=== PATIENT | male | born 1980 | race Caucasian/White ===

== ENCOUNTER → 2018-06-24 | Outpatient (CLI) | payer OTHER ==
[~2018-06-24] MED LIST: IOHEXOL 350 MG/ML 150 ML (OMNIPAQUE 350) VIAL IV ONE; NS 250 ML (IVPB) BAG IV ONE; RECEIVED CONTRAST (Hold Metformin) IV SCH
[2018-06-24 15:41] LABS: CREATININE SERUM 1.43 MG/DL (0.60-1.30)
== END ==
LOC: RAD 14:54
PROVIDERS: ATTEND Nurse Practitioner Family
DX: J45.909 Unspecified asthma, uncomplicated (principal); E66.9 Obesity, unspecified; G47.10 Hypersomnia, unspecified; G47.50 Parasomnia, unspecified
CPT/HCPCS: 36415; 82565; 84520

== ENCOUNTER 2018-07-05 08:30 | Outpatient (CLI) | payer OTHER | END 2018-07-05 08:45 | disposition home or self-care (01) | LOC: SLEEP 08:30 | PROVIDERS: ATTEND Nurse Practitioner Family | DX: J45.909 Unspecified asthma, uncomplicated (principal); E66.9 Obesity, unspecified; G47.10 Hypersomnia, unspecified; G47.50 Parasomnia, unspecified; R06.00 Dyspnea, unspecified ==

== ENCOUNTER → 2018-07-10 | Outpatient (CLI) | payer OTHER ==
[2018-06-24 15:32] LABS: ABG BASE EXCESS 1.3 MMOL/L (-2.5-2.5); ABG OXYGEN SATURATION 98 % (94-100); ABG PCO2 33 MMHG (35-45); ABG PH 7.48 (7.37-7.43); ABG PO2 95 MMHG (79-93); ABG TCO2 25.4 MMOL/L (21.0-31.0)
[2018-06-24 15:33] LABS: ALLENS TEST POSITIVE; PATIENT TEMP 99.1; VENTILATOR NO
[~2018-07-10] MED LIST changes: -IOHEXOL 350 MG/ML 150 ML (OMNIPAQUE 350) VIAL IV ONE; -NS 250 ML (IVPB) BAG IV ONE; -RECEIVED CONTRAST (Hold Metformin) IV SCH; +RT-ALBUTEROL SULF 2.5 MG/3 ML PRE-MIX VIAL INH ONE
== END ==
LOC: EDUNIT# 06-24 11:42 → RT 13:05
PROVIDERS: ATTEND Nurse Practitioner Family
DX: J45.909 Unspecified asthma, uncomplicated (principal); G47.10 Hypersomnia, unspecified; G47.50 Parasomnia, unspecified; R06.00 Dyspnea, unspecified; E66.9 Obesity, unspecified
CPT/HCPCS: 36600; 82805; 94060; 94726; 94729; 94761